=== PATIENT | female | born 2000 | race Caucasian/White ===

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

== ENCOUNTER 2020-02-07 17:37 | Emergency (ER) | payer MEDICAID ==
--- NOTE | 2020-02-07 17:43 | NUR ---
Called patient x1, no answer
--- NOTE | 2020-02-07 17:52 | NUR ---
Called patient x 2 , no answer
--- NOTE | 2020-02-07 18:00 | NUR ---
Called patient x 3 , no answer
--- NOTE | 2020-02-07 18:10 | NUR ---
Patient to ER bed 07 to gown for evaluation. Side rails up.
--- NOTE | 2020-02-07 18:12 | NUR ---
Pt brought by self, A&Ox4, pt presents to ER with pain in the vaginal, rectal, lower back and henry legs, pt states she was recently discharged from hospital, Hx of ruptured cyst, pt states LMP was in October, pt crying at this time since she has hematuria today, pt afebrile, skin pink and warm, cap refill <3.
--- NOTE | 2020-02-07 18:20 | NUR ---
Dr Blanca evaluating your patient at bedside
[2020-02-07] MEDS ORDERED: KETOROLAC TROMETHAMINE 60 MG/2 ML VIAL IM ONE (18:30)
--- NOTE | 2020-02-07 18:54 | NUR ---
DR ROLLINS AT BEDSIDE
[2020-02-07 19:03] VITALS: BP_SYST 122
--- NOTE | 2020-02-07 19:28 | NUR ---
Patient given written and verbal discharge instructions and verbalizes understanding. ER MD discussed with patient the results and treatment provided. Patient in stable condition. ID arm band removed. Rx of given. Patient educated on pain management and to follow up with PMD. Pain Scale 2/10 Opportunity for questions provided and answered. Medication side effect fact sheet provided.
== END 2020-02-07 19:27 | disposition home or self-care (01) ==
LOC: SED 17:37
DX: G89.4 Chronic pain syndrome (principal); M54.5 Low back pain; R10.2 Pelvic and perineal pain; K62.89 Other specified diseases of anus and rectum; F11.20 Opioid dependence, uncomplicated; F41.9 Anxiety disorder, unspecified; Z88.8 Allergy status to other drugs, medicaments and biological substances
CPT/HCPCS: 81025; 96372; 99283; J1885

== ENCOUNTER 2021-01-12 13:07 | Emergency (ER) | payer MEDICAID ==
[~2021-01-12] VITALS: Ht 149.9 cm; Wt 43.1 kg
[2021-01-12] MEDS ORDERED: NAPROXEN 250 MG TABLET PO ONE (15:15)
[2021-01-12 15:22] LABS: BILIRUBIN,URINE NEGATIVE (NEGATIVE); BLOOD, URINE NEGATIVE (NEGATIVE); COLOR,URINE YELLOW (YELLOW); GLUCOSE,URINE NEGATIVE (NEGATIVE); KETONES,URINE NEGATIVE (NEGATIVE); LEUKOCYTE ESTERASE ,URINE 1+ (NEGATIVE); NITRITE, URINE NEGATIVE (NEGATIVE); PROTEIN URINE NEGATIVE (NEGATIVE); UROBILINOGEN,URINE 0.2 (0.2-1.0)
[2021-01-12 15:29] LABS: CLARITY/URINE HAZY (CLEAR)
[2021-01-12 15:30] LABS: BACTERIA,URINE FEW /HPF (None Seen); RBC,URINE 0-3 /HPF (0-3)
[2021-01-12 15:31] LABS: MUCUS,URINE None Seen /LPF (None Seen)
[2021-01-12 15:33] LABS: BASOPHILS % (AUTO) 0.2 % (0.0-2.0); EOSINOPHILS # (AUTO) 0.1 K/uL (0.0-0.4); EOSINOPHILS % (AUTO) 1.5 % (0.0-4.0); HEMATOCRIT 38.1 % (36-48); LYMPHOCYTES # (AUTO) 1.9 K/uL (1.0-5.5); LYMPHOCYTES % (AUTO) 22.3 % (20.5-51.5); MEAN CORPUSCULAR HEMOGLOBIN 32 pg (27-31); MEAN CORPUSCULAR HGB CONC 34 % (32-36); MEAN CORPUSCULAR VOLUME 93 fL (79.0-98.0); MONOCYTES # (AUTO) 0.4 K/uL (0.0-1.0); MONOCYTES % (AUTO) 5.2 % (1.7-9.3); NEUTROPHILS # (AUTO) 5.9 K/uL (1.8-7.7); NEUTROPHILS % (AUTO) 70.8 % (40.0-70.0); PLATELET COUNT (AUTO) 243 K/uL (130-430); RED BLOOD CELL COUNT(AUTO) 4.11 MIL/uL (4.2-6.2); RED CELL DISTRIBUTION WIDTH 13.5 % (9.0-15.0); WHITE BLOOD COUNT (AUTO) 8.4 K/uL (4.8-10.8)
[2021-01-12 15:48] LABS: CALCIUM 8.7 mg/dL (8.4-11.0); CREATININE 0.63 mg/dL (0.55-1.30); POTASSIUM 3.9 mmol/L (3.5-5.1)
[2021-01-12 15:53] LABS: ALBUMIN 3.8 g/dL (3.4-4.8); TOTAL BILIRUBIN 0.4 mg/dL (0.0-1.0)
[2021-01-12] MEDS ORDERED: TRAM50TA PO (18:05)
[2021-01-12 18:23] VITALS: BP_SYST 146
== END 2021-01-12 18:23 | disposition home or self-care (01) ==
LOC: SED 13:07
DX: G89.29 Other chronic pain (principal); R10.2 Pelvic and perineal pain; F32.9 Major depressive disorder, single episode, unspecified; F41.9 Anxiety disorder, unspecified; Z91.041 Radiographic dye allergy status; Z79.899 Other long term (current) drug therapy
CPT/HCPCS: 36415; 74018; 76856-TC; 80053; 81000; 81025; 85025; 87086; 99285